=== PATIENT | male | born 1985 ===

== ENCOUNTER 2021-01-30 16:59 | Outpatient (REF) | payer BC, SELFPAY ==
[2021-01-30 21:17] LABS: ALT 40 U/L (16-63); AST 17 U/L (15-37); Albumin 4.2 g/dL (3.4-5.0); Alkaline Phosphatase 91 U/L (46-116); Anion Gap 9.2 mmol/L (3-11); BUN 16 mg/dL (7-18); Bilirubin, Total 0.5 mg/dL (0.2-1.0); CO2 27.8 mmol/L (21.0-32.0); Calcium 9.2 mg/dL (8.5-10.1); Calculated LDL 166 mg/dL (<100); Chloride 106 mmol/L (98-107); Cholesterol 229 mg/dL (<200); Glucose 82 mg/dL (74-106); HDL Cholesterol 37 mg/dL (40-60); Potassium 4.5 mmol/L (3.5-5.1); Sodium 143 mmol/L (136-145); Total Protein 7.8 g/dL (6.4-8.2); Triglyceride 134 mg/dL (<150)
== END 2021-01-30 17:00 | disposition home or self-care (01) ==
LOC: NCHCN 16:59
PROVIDERS: Visit Provider Registered Nurse
DX: R31.9 Hematuria, unspecified (principal); Z13.220 Encounter for screening for lipoid disorders; Z83.49 Family history of other endocrine, nutritional and metabolic diseases
CPT/HCPCS: 80053; 80061

== ENCOUNTER 2024-09-13 22:18 | Outpatient (REF) | payer OTHER, SELFPAY ==
[2024-09-13 21:23] LABS: Hemoglobin A1C 5.3 % (<5.7)
[2024-09-13 21:25] LABS: Glucose Negative (Negative)
[2024-09-13 21:36] LABS: C & S Indicated? No; RBC 0-2 HPF (0-2); WBC 0-2 HPF (0-5)
[2024-09-13 22:20] LABS: ALT 45 U/L (16-63); AST 21 U/L (15-37); Albumin 4.0 g/dL (3.4-5.0); Alkaline Phosphatase 90 U/L (46-116); Anion Gap 2.8 mmol/L (3-11); BUN 18 mg/dL (7-18); Bilirubin, Total 1.0 mg/dL (0.2-1.0); CO2 31.2 mmol/L (21.0-32.0); Calcium 9.2 mg/dL (8.5-10.1); Calculated LDL 137 mg/dL (<100); Chloride 102 mmol/L (98-107); Cholesterol 192 mg/dL (<200); Estimated GFR 112.81 (mL/min/1.73m2); Glucose 85 mg/dL (74-106); HDL Cholesterol 41 mg/dL (>or=40); Potassium 4.6 mmol/L (3.5-5.1); Sodium 136 mmol/L (136-145); Total Protein 7.7 g/dL (6.4-8.2); Triglyceride 73 mg/dL (<150)
[2024-09-13 22:23] LABS: PROTEIN 6.3 mg/dL; Prot/Crea Ur Ratio 0.15
[2024-09-15 09:22] LABS: Hepatitis C Ab w Rflx HCV PCR Negative (Negative)
[2024-09-15 09:42] LABS: HIV-1/2 Ag & Ab Screen Negative (Negative)
== END 2024-09-13 22:19 | disposition home or self-care (01) ==
LOC: NCHCN 22:18
PROVIDERS: Visit Provider Nurse Practitioner Family
DX: Z00.00 Encounter for general adult medical examination without abnormal findings (principal); R31.29 Other microscopic hematuria
CPT/HCPCS: 80053; 80061; 86803; 87389; 81003; 81015; 82565; 83036; 84156